=== PATIENT | female | born 1990 | race Caucasian/White ===

== ENCOUNTER 2018-09-06 13:30 | Emergency (ER) | payer OTHER, SELFPAY ==
--- NOTE | 2018-09-06 14:03 | RAD ---
RIGHT FOOT THREE VIEWS: History: Injury. Right foot pain. FINDINGS/IMPRESSION: No fracture or dislocation is identified. POS: [facility]ILIP[facility]
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
[2018-09-06] MEDS ORDERED: Ketorolac Tromethamine 30 MG/ML VIAL ONE (14:23)
== END 2018-09-06 15:15 | disposition home or self-care (01) ==
LOC: ERS 13:30
DX: T14.8XXA Other injury of unspecified body region, initial encounter (principal); F41.9 Anxiety disorder, unspecified; F32.9 Major depressive disorder, single episode, unspecified; V89.2XXA Person injured in unspecified motor-vehicle accident, traffic, initial encounter
CPT/HCPCS: 96374; J1885

== ENCOUNTER 2018-10-26 13:13 | Emergency (ER) | payer SELFPAY ==
[2018-10-26 13:45] LABS: #Basophils 0.1 thou/uL (0.0-0.2); #Lymphocytes 2.8 thou/uL (1.20-3.40); #Monocytes 0.5 thou/uL (0.11-0.59); #Neutrophils 6.6 thou/uL (1.40-6.50); %Eosinophils 0.3 % (0.0-10.0); %Lymphocytes 27.9 % (21.0-51.0); %Monocytes 5.4 % (0.0-10.0); %Neutrophils 65.4 % (42.0-75.0); Hemoglobin 13.5 g/dL (12.0-16.0); Mean Corpuscular Hemoglobin 31.4 pg (27.0-31.0); Mean Corpuscular Volume 92.5 fL (78.0-98.0); Mean Platelet Volume 6.9 fL (7.4-10.4); Platelet Count 321 thou/uL (130-400); RBC Distribution Width 10.8 % (11.5-14.5); Red Blood Cell (RBC) Count 4.29 mill/uL (4.20-5.40)
[2018-10-26 13:52] LABS: Bilirubin Negative (Negative); Blood, Urine Negative (Negative); Clarity CLEAR (Clear); Glucose, Urine (Dipstick) Negative (Negative); Leukocyte Small (Negative); Nitrite Negative (Negative); Protein, Urine (Dipstick) Negative (Neg-Trace); Specific Gravity, Urine 1.016 (1.002-1.036); Urobilinogen 0.2 mg/dL (0.2-1.0); pH, Urine 7.5 (5.0-9.0)
[2018-10-26 13:54] LABS: Bacteria/HPF None Seen HPF (None Seen); Hyaline Casts/LPF 4-6 HYALINE CAST LPF (0-3 Hyaline); Pathc Cast-AUWi Flag 1.16 (0-2.49)
[2018-10-26 14:09] LABS: ALT (SGPT) Less than 7 U/L (8-55); AST (SGOT) 18 U/L (5-34); Albumin 4.4 g/dL (3.5-5.0); Alkaline Phosphatase 82 U/L (40-150); Anion Gap 13 mmol/L (10-20); BUN (Urea Nitrogen) 11 mg/dL (7.0-18.7); Bilirubin, Total 0.5 mg/dL (0.2-1.2); Calc. Creatinine Clearance 0 mL/min (70-130); Calcium 9.4 mg/dL (7.8-10.44); Carbon Dioxide 22 mmol/L (22-29); Chloride 103 mmol/L (98-107); Estimated GFR-MDRD Greater than 90; Globulin 3.1 g/dL (2.4-3.5); Glucose 82 mg/dL (70-105); Lipase 65 U/L (8-78); Potassium 3.6 mmol/L (3.5-5.1); Protein, Total 7.5 g/dL (6.0-8.3); Sodium 134 mmol/L (136-145)
[2018-10-26] MEDS ORDERED: Acetaminophen 325 MG TAB ONE (14:17)
[2018-10-26] MEDS ORDERED: Ondansetron ODT 4 MG TAB ONE (14:17)
--- NOTE | 2018-10-26 15:22 | ULT ---
ULTRASOUND PELVIS TRANSVAGINAL: Date: !8 HISTORY: Pain. Abdominal pain. Elevated HCG. COMPARISON: None. FINDINGS: The uterus measures 8.1 cm in length. Right ovary measures 2.5 x 3.9 x 2.4 cm with a corpus luteum. L eft ovary measures 2.3 x 3.9 x 1.0 cm. A gestational sac and yolk sac are present, as well as a pole. heart tones are not visual ized. No subchorionic hemorrhage. The mean sac diameter is 0.94 cm. IMPRESSION: Visualized intrauterine without heart tones. The gestational sac diameter is less than 1.0 cm. This may reflect an early . A follow-up ultrasound with HCG trend is recommended in 1-2 weeks. POS: PETER
[2018-10-26 16:13] LABS: Bilirubin Negative (Negative); Blood, Urine Trace (Negative); Clarity CLEAR (Clear); Glucose, Urine (Dipstick) Negative (Negative); Leukocyte Trace (Negative); Nitrite Negative (Negative); Protein, Urine (Dipstick) Negative (Neg-Trace); Specific Gravity, Urine 1.011 (1.002-1.036); Urobilinogen 0.2 mg/dL (0.2-1.0)
[2018-10-26 16:15] LABS: Bacteria/HPF None Seen HPF (None Seen); Hyaline Casts/LPF 0-3 HYALINE CAST LPF (0-3 Hyaline); Pathc Cast-AUWi Flag 0.43 (0-2.49); WBC/HPF 0-3 HPF (0-3)
== END 2018-10-26 17:12 | disposition home or self-care (01) ==
LOC: ERS 13:13
DX: O21.9 Vomiting of pregnancy, unspecified (principal); O99.89 Other specified diseases and conditions complicating pregnancy, childbirth and the puerperium; R10.32 Left lower quadrant pain; O99.341 Other mental disorders complicating pregnancy, first trimester; F32.9 Major depressive disorder, single episode, unspecified; F41.9 Anxiety disorder, unspecified; Z79.899 Other long term (current) drug therapy; Z3A.01 Less than 8 weeks gestation of pregnancy
CPT/HCPCS: 36415; 76856; 80053; 81003; 81015; 83690; 84702; 85025; Q0162

== ENCOUNTER 2018-11-12 02:05 | Emergency (ER) | payer OTHER, SELFPAY ==
[2018-11-12 03:00] LABS: #Monocytes 0.7 thou/uL (0.11-0.59); #Neutrophils 8.2 thou/uL (1.40-6.50); %Basophils 0.2 % (0.0-1.0); %Eosinophils 0.3 % (0.0-10.0); %Lymphocytes 9.9 % (21.0-51.0); %Monocytes 6.9 % (0.0-10.0); %Neutrophils 82.7 % (42.0-75.0); Hemoglobin 11.7 g/dL (12.0-16.0); Mean Corpuscular HGB CONC 35.3 g/dL (32.0-36.0); Mean Corpuscular Hemoglobin 32.3 pg (27.0-31.0); Mean Corpuscular Volume 91.5 fL (78.0-98.0); Platelet Count 290 thou/uL (130-400); RBC Distribution Width 11.2 % (11.5-14.5); Red Blood Cell (RBC) Count 3.62 mill/uL (4.20-5.40); White Blood Cell (WBC) Count 9.9 thou/uL (4.8-10.8)
[2018-11-12] MEDS ORDERED: Ondansetron ODT 4 MG TAB ONE (03:01)
[2018-11-12] MEDS ORDERED: Acetaminophen 500 MG TAB ONE (03:01)
[2018-11-12 03:20] LABS: ALT (SGPT) 7 U/L (8-55); AST (SGOT) 17 U/L (5-34); Albumin 4.2 g/dL (3.5-5.0); Alkaline Phosphatase 69 U/L (40-150); Anion Gap 11 mmol/L (10-20); BUN (Urea Nitrogen) 13 mg/dL (7.0-18.7); Bilirubin, Total 0.2 mg/dL (0.2-1.2); Calc. Creatinine Clearance 0 mL/min (70-130); Calcium 9.5 mg/dL (7.8-10.44); Carbon Dioxide 23 mmol/L (22-29); Chloride 106 mmol/L (98-107); Estimated GFR-MDRD Greater than 90; Globulin 2.8 g/dL (2.4-3.5); Glucose 102 mg/dL (70-105); Lipase 25 U/L (8-78); Sodium 136 mmol/L (136-145)
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
== END 2018-11-12 05:07 | disposition home or self-care (01) ==
LOC: ERS 02:05
DX: O9A.211 Injury, poisoning and certain other consequences of external causes complicating pregnancy, first trimester (principal); S00.81XA Abrasion of other part of head, initial encounter; O99.341 Other mental disorders complicating pregnancy, first trimester; F41.9 Anxiety disorder, unspecified; F32.9 Major depressive disorder, single episode, unspecified; Z3A.09 9 weeks gestation of pregnancy; Y04.8XXA Assault by other bodily force, initial encounter
CPT/HCPCS: 36415; 76856; 80053; 83690; 85025; 86900; 86901; Q0162

== ENCOUNTER 2019-01-06 23:10 | Emergency (ER) | payer MEDICAID ==
[2019-01-06 23:33] LABS: Bilirubin Negative (Negative); Blood, Urine Trace (Negative); Clarity CLEAR (Clear); Glucose, Urine (Dipstick) Negative (Negative); Leukocyte Moderate (Negative); Nitrite Negative (Negative); Protein, Urine (Dipstick) Negative (Neg-Trace); Specific Gravity, Urine 1.007 (1.002-1.036); Urobilinogen 0.2 mg/dL (0.2-1.0); pH, Urine 6.5 (5.0-9.0)
[2019-01-06 23:34] LABS: Bacteria/HPF Rare-Few HPF (None Seen); Hyaline Casts/LPF 0-3 HYALINE CAST LPF (0-3 Hyaline); Squamous Epithelial 0-3 HPF (0-3)
[2019-01-07 00:14] LABS: #Basophils 0.1 thou/uL (0.0-0.2); #Eosinphils 0.1 thou/uL (0.0-0.7); #Lymphocytes 2.8 thou/uL (1.20-3.40); #Monocytes 0.7 thou/uL (0.11-0.59); #Neutrophils 8.4 thou/uL (1.40-6.50); %Basophils 0.9 % (0.0-1.0); %Eosinophils 0.8 % (0.0-10.0); %Lymphocytes 22.9 % (21.0-51.0); %Monocytes 5.8 % (0.0-10.0); %Neutrophils 69.6 % (42.0-75.0); Hemoglobin 11.9 g/dL (12.0-16.0); Mean Corpuscular HGB CONC 33.3 g/dL (32.0-36.0); Mean Corpuscular Volume 96.1 fL (78.0-98.0); Mean Platelet Volume 7.1 fL (7.4-10.4); Platelet Count 277 thou/uL (130-400); RBC Distribution Width 11.7 % (11.5-14.5); Red Blood Cell (RBC) Count 3.71 mill/uL (4.20-5.40)
[2019-01-07 00:37] LABS: ALT (SGPT) Less than 7 U/L (8-55); AST (SGOT) 15 U/L (5-34); Albumin 3.8 g/dL (3.5-5.0); Alkaline Phosphatase 61 U/L (40-150); Anion Gap 13 mmol/L (10-20); BUN (Urea Nitrogen) 11 mg/dL (7.0-18.7); Bilirubin, Total 0.2 mg/dL (0.2-1.2); Calc. Creatinine Clearance 0 mL/min (70-130); Calcium 9.1 mg/dL (7.8-10.44); Carbon Dioxide 21 mmol/L (22-29); Chloride 106 mmol/L (98-107); Estimated GFR-MDRD Greater than 90; Globulin 2.8 g/dL (2.4-3.5); Glucose 82 mg/dL (70-105); Lipase 30 U/L (8-78); Potassium 3.8 mmol/L (3.5-5.1); Protein, Total 6.6 g/dL (6.0-8.3); Sodium 136 mmol/L (136-145)
[2019-01-07] MEDS ORDERED: Acetaminophen 325 MG TAB ONE (01:18)
[2019-01-07] MEDS ORDERED: Ondansetron PF 4 MG/2 ML Vial ONE (01:18)
== END 2019-01-07 01:52 | disposition left against medical advice (07) ==
LOC: ERS 23:10
DX: O99.89 Other specified diseases and conditions complicating pregnancy, childbirth and the puerperium (principal); R10.31 Right lower quadrant pain; O99.342 Other mental disorders complicating pregnancy, second trimester; F41.9 Anxiety disorder, unspecified; F32.9 Major depressive disorder, single episode, unspecified; Z3A.16 16 weeks gestation of pregnancy
CPT/HCPCS: 36415; 80053; 81003; 81015; 83690; 85025; 87077; 87086; 87186; J2405

== ENCOUNTER 2019-01-26 06:50 | Outpatient (CLI) | payer OTHER ==
--- NOTE | 2019-01-26 08:13 | ULT ---
FObstetrical ultrasound: 01/26/2019 COMPARISON: None HISTORY: 28-year-old female undergoing evaluation for size and dates TECHNIQUE: Multiplanar grayscale sonographic imaging of the gravid uterus obtained. FINDINGS: Single intrauterine gestation noted with heart rate of 138 bpm and cephalic presentat ion. Cervical length approximately 3.1 cm. Placenta located anteriorly with no evidence for previa or abru ption. Intracranial contents, four-chamber heart view, umbilical cord insertion, stomach, regio n of kidneys, bladder, and three-vessel cord unremarkable. spine appears grossly un remarkable. Amniotic fluid index is 14.4 cm, within normal limits. nose and lips appear unremarkable. biometry: BPD 4.5 cm 19 weeks 4 days HC 16.6 cm 19 weeks 2 days AC 14.1 cm 19 weeks 4 days FL 2.7 cm 18 weeks 3 days Average age based on ultrasound is 19 weeks 2 days. Estimated weight is 270 g Estimated date of delivery is 06/20/2019. IMPRESSION: Single live intrauterine gestation as detailed above.
== END 2019-01-26 06:51 | disposition home or self-care (01) ==
LOC: BICULT 06:50
PROVIDERS: ATTEND Family Medicine
DX: Z34.92 Encounter for supervision of normal pregnancy, unspecified, second trimester (principal); Z3A.19 19 weeks gestation of pregnancy
CPT/HCPCS: 76805

== ENCOUNTER 2019-01-31 21:03 | Inpatient (IN) | payer OTHER ==
[2019-01-31 21:28] LABS: Bilirubin Negative (Negative); Blood, Urine Large (Negative); Clarity Cloudy (Clear); Glucose, Urine (Dipstick) Negative (Negative); Leukocyte Small (Negative); Nitrite Positive (Negative); Protein, Urine (Dipstick) 100 mg/dL (Neg-Trace); Specific Gravity, Urine 1.015 (1.005-1.030); Urobilinogen 0.2 mg/dL (0.2-1.0); pH, Urine 6.5 (5.0-9.0)
[2019-01-31 21:38] LABS: Bacteria/HPF 4+ HPF (None Seen); Hyaline Casts/LPF NONE SEEN LPF (0-3 Hyaline); WBC/HPF 21-50 HPF (0-3)
[2019-01-31 21:44] LABS: ALT (SGPT) Less than 6 U/L (8-55); AST (SGOT) 16 U/L (5-34); Albumin 3.4 g/dL (3.5-5.0); Alkaline Phosphatase 77 U/L (40-150); Anion Gap 13 mmol/L (10-20); BUN (Urea Nitrogen) 6 mg/dL (7.0-18.7); Bilirubin, Total 0.3 mg/dL (0.2-1.2); Calc. Creatinine Clearance 0 mL/min (70-130); Calcium 8.9 mg/dL (7.8-10.44); Carbon Dioxide 21 mmol/L (22-29); Chloride 103 mmol/L (98-107); Estimated GFR-MDRD Greater than 90; Globulin 3.1 g/dL (2.4-3.5); Glucose 90 mg/dL (70-105); Lipase 9 U/L (8-78); Potassium 3.7 mmol/L (3.5-5.1); Protein, Total 6.5 g/dL (6.0-8.3); Sodium 133 mmol/L (136-145)
[2019-01-31 21:45] LABS: Band 7 % (5-11); Eosinophils 1 % (0-10); Lymphocytes 8 % (21-51); MDiff Complete? YES; Mean Corpuscular Hemoglobin 32.3 pg (27.0-31.0); Mean Corpuscular Volume 92.1 fL (78.0-98.0); Mean Platelet Volume 6.6 fL (7.4-10.4); Monocytes 4 % (0-10); Neutrophil 80 % (42-75); Platelet Count 179 thou/uL (130-400); RBC Distribution Width 11.4 % (11.5-14.5); Red Blood Cell (RBC) Count 3.41 mill/uL (4.20-5.40); White Blood Cell (WBC) Count 15.6 thou/uL (4.8-10.8)
[2019-01-31] MEDS ORDERED: cefTRIAXone\\ROCEPHIN 2 GM VIAL ONE (21:59)
[2019-02-01] MEDS ORDERED: Sodium Chloride 0.9% 1,000 ML IV SCH ×2 (00:55→01:00)
[2019-02-01] MEDS ORDERED: Ondansetron ODT 4 MG TAB SL PRN (00:55)
[2019-02-01] MEDS ORDERED: Ondansetron PF 4 MG/2 ML Vial IVP PRN ×2 (00:55→08:08)
[2019-02-01] MEDS ORDERED: HYDROcodone/Acetaminophen 5/325 mg Tablet PO PRN (01:00)
[2019-02-01] MEDS: HYDROcodone/Acetaminophen 5/325 mg Tablet PO PRN ×4 (01:14→20:47)
[2019-02-01 01:48] VITALS: BMI 24.4
[2019-02-01] MEDS ORDERED: Acetaminophen 325 MG TAB PO PRN (08:08)
[2019-02-01] MEDS ORDERED: Zolpidem Tartrate 5 MG TAB PO PRN (08:08)
[2019-02-01] MEDS ORDERED: cefTRIAXone Sodium 1,000 MG in Syringe 0 ML IVPB SCH (08:15)
[2019-02-01] MEDS ORDERED: cefTRIAXone\\ROCEPHIN 1 GM in Sodium Chloride 0.9% 100 ML IVPB SCH ×2 (08:30→21:00)
[2019-02-01 09:00] LABS: Anion Gap 12 mmol/L (10-20); BUN (Urea Nitrogen) 5 mg/dL (7.0-18.7); Calc. Creatinine Clearance 146 mL/min (70-130); Calcium 7.9 mg/dL (7.8-10.44); Carbon Dioxide 20 mmol/L (22-29); Chloride 105 mmol/L (98-107); Estimated GFR-MDRD Greater than 90; Glucose 78 mg/dL (70-105); Potassium 3.5 mmol/L (3.5-5.1); Sodium 133 mmol/L (136-145)
[2019-02-01] MEDS: Sodium Chloride 0.9% 1,000 ML IV SCH ×2 (09:01→16:59)
[2019-02-01] MEDS: cefTRIAXone\\ROCEPHIN 1 GM in Sodium Chloride 0.9% 100 ML IVPB SCH (09:40)
--- NOTE | 2019-02-01 10:48 | ULT ---
FComplete Obstetrical Ultrasound Indication: History of pyelonephritis in . FINDINGS: There is a single live intrauterine gestation in cephalic presentation. The placenta is anterior in l ocation without evidence of previa. The cardiac activity is noted at 139 bpm. The ESTRELLITA is qualitativel y normal. The biparietal diameter 4.87 cm. The head circumference measures 17.67 cm. The abdominal circumference measured 13.79 cm. The femoral length was 3.23 cm. The estimated weight is 308 g +/- 46 g (23rd percentile). Average gestational age by ultrasound based on biometrics is 19 weeks and 6 with estimated due date of June 22, 2019. The visualized bladder, left kidney, 3 vessel cord, four-chamber heart, stomach, right kidney a nd cord insertion appear within normal limits. Impression: 1. Single live intrauterine gestation with size and dates as above. Limited survey appeared wit hin normal limits. Transcribed Date/Time: 02/01/2019 11:13 AM
--- NOTE | 2019-02-01 12:00 | ULT ---
FRenal ultrasound INDICATION: History of pyelonephritis with FINDINGS: The right kidney measured 12.2 x 5.1 x 6 cm. There is mild right hydronephrosis. The left kidney measures 11.7 x 5 x 5.4 cm. There are bilateral ureteral jets seen at the level of the bladder. Incidental note is made of the intrauterine where the heart rate is measured at 139 b pm. The prevoid bladder volume was 38.9 cc. IMPRESSION: Mild right hydronephrosis may be physiologic in nature. There are bilateral ureteral jets seen at the level of the bladder. Left kidney sonographically appears within normal limits.
--- NOTE | 2019-02-01 14:50 | HP ---
HISTORY OF PRESENT ILLNESS: This is a 28-year-old white female, G1, P0, at 20 weeks' gestation, who presents with fever and back pain. The patient has been doing well thus far. Three days prior, on Tuesday, the patient developed low back pain. She was seen in the office and diagnosed with sacroiliac pain. However, her pain started to radiate up her back, and later that evening developed fever and nausea. She has had minimal intake. Her fever persisted and finally came to the ER last night and was found to have pyelo. The patient is feeling somewhat better today, but she still with some nausea. She has had no prior history of kidney infections. PAST MEDICAL HISTORY: Unremarkable. PAST SURGICAL HISTORY: None. MEDICATIONS: vitamins and iron. ALLERGIES: NONE. FAMILY HISTORY: Unremarkable for any diabetes, hypertension, heart disease, or cancer. SOCIAL HISTORY: She lives with her common-law . She does not smoke and does not drink. REVIEW OF SYSTEMS: As above. LABORATORY DATA: O positive blood type. Rubella immune. Hepatitis B negative. GC and chlamydia negative. RPR negative. HIV negative. Sodium 133, potassium 3.7, and creatinine 0.64. White count 15.6, hemoglobin and hematocrit 11 and 31. Urine with ketones, large blood, positive nitrites, 7-10 rbc's, 21-50 wbc's, 4+ bacteria. ASSESSMENT: 1. A 20-week intrauterine . 2. Pyelonephritis bilaterally. 3. Dehydration. PLAN: 1. Admit. 2. IV Rocephin daily. 3. Hydrate with normal saline. 4. Recheck CBC and electrolytes. 5. Zofran for nausea. 6. Renal and OB ultrasound. Job ID: [id number]
[2019-02-01] MEDS: Ondansetron ODT 4 MG TAB PO PRN (17:01)
[2019-02-02] MEDS: HYDROcodone/Acetaminophen 5/325 mg Tablet PO PRN ×2 (02:54→08:39)
[2019-02-02] MEDS: Ondansetron ODT 4 MG TAB PO PRN (02:55)
[2019-02-02 03:28] VITALS: TEMP 97.8
[2019-02-02 05:54] LABS: #Eosinphils 0.1 thou/uL (0.0-0.7); #Lymphocytes 1.9 thou/uL (1.20-3.40); #Monocytes 1.3 thou/uL (0.11-0.59); #Neutrophils 7.5 thou/uL (1.40-6.50); %Basophils 0.4 % (0.0-1.0); %Eosinophils 0.9 % (0.0-10.0); %Lymphocytes 17.7 % (21.0-51.0); %Monocytes 11.9 % (0.0-10.0); %Neutrophils 69.3 % (42.0-75.0); Hemoglobin 8.2 g/dL (12.0-16.0); Mean Corpuscular HGB CONC 34.8 g/dL (32.0-36.0); Mean Corpuscular Hemoglobin 33.8 pg (27.0-31.0); Mean Corpuscular Volume 97.3 fL (78.0-98.0); Mean Platelet Volume 7.2 fL (7.4-10.4); Platelet Count 169 thou/uL (130-400); RBC Distribution Width 11.4 % (11.5-14.5); Red Blood Cell (RBC) Count 2.44 mill/uL (4.20-5.40); White Blood Cell (WBC) Count 10.8 thou/uL (4.8-10.8)
[2019-02-02 06:10] LABS: Anion Gap 8 mmol/L (10-20); BUN (Urea Nitrogen) Less than 4 mg/dL (7.0-18.7); Calc. Creatinine Clearance 174 mL/min (70-130); Calcium 7.7 mg/dL (7.8-10.44); Carbon Dioxide 22 mmol/L (22-29); Chloride 109 mmol/L (98-107); Estimated GFR-MDRD Greater than 90; Glucose 74 mg/dL (70-105); Potassium 3.7 mmol/L (3.5-5.1); Sodium 135 mmol/L (136-145)
[2019-02-02] MEDS: Sodium Chloride 0.9% 1,000 ML IV SCH ×2 (07:00)
[2019-02-02 08:13] VITALS: BP 120/60
[2019-02-02] MEDS: cefTRIAXone\\ROCEPHIN 1 GM in Sodium Chloride 0.9% 100 ML IVPB SCH (08:39)
--- NOTE | 2019-02-02 12:30 | DIS ---
DATE OF ADMISSION: 01/31/2019 DATE OF DISCHARGE: 02/02/2019 DISCHARGE DIAGNOSES: 1. Pyelonephritis. 2. Dehydration. 3. A 20-week . DISCHARGE MEDICATIONS: 1. vitamins daily. 2. Iron daily. 3. Macrobid one p.o. b.i.d., #20. 4. Tylenol No. 3 one to two p.o. q.4 hours p.r.n. pain, #30. BRIEF HISTORY: This is a 28-year-old white female, G1, P0, at 20 weeks' gestation, admitted with a 2-to 3-day history of back pain, fever, and nausea, had become progressively worse over the past several days. Seen in the ER and was diagnosed with acute pyelonephritis. She also has had a right sacroiliac discomfort. PAST MEDICAL HISTORY: Unremarkable. HOSPITAL COURSE: The patient was placed on IV Rocephin daily. Her fever resolved. Urine culture came back positive for E coli. ultrasound and renal ultrasound were negative, except for some mild hydronephrosis. The patient is doing well. Her blood count did drop from 11 to 8. She will be discharged on the above medications. She will follow up in 1 week. She will be placed on antibiotics for the duration of her also. Job ID: [id number]
== END 2019-02-02 10:13 | disposition home health service (06) | DRG 833 ==
LOC: SCSER 21:03 → 3SW 23:09
PROVIDERS: ADMIT Family Medicine; ATTEND Family Medicine
DX: O23.02 Infections of kidney in pregnancy, second trimester (principal); B96.20 Unspecified Escherichia coli [E. coli] as the cause of diseases classified elsewhere; E86.0 Dehydration; O99.282 Endocrine, nutritional and metabolic diseases complicating pregnancy, second trimester; Z3A.20 20 weeks gestation of pregnancy
CPT/HCPCS: 36415; 76770; 76805; 80048; 80053; 81003; 81015; 83690; 85025; 87040; 87077; 87086; 87186; 87804; 96361; 96365; J0696; J7050; Q0162

== ENCOUNTER 2019-02-03 00:12 | Observation (INO) | payer OTHER ==
[2019-02-03 01:31] LABS: ALT (SGPT) 11 U/L (8-55); AST (SGOT) 23 U/L (5-34); Albumin 3.5 g/dL (3.5-5.0); Alkaline Phosphatase 106 U/L (40-150); Anion Gap 15 mmol/L (10-20); BUN (Urea Nitrogen) 7 mg/dL (7.0-18.7); Bilirubin, Total 0.2 mg/dL (0.2-1.2); Calc. Creatinine Clearance 0 mL/min (70-130); Calcium 9.1 mg/dL (7.8-10.44); Carbon Dioxide 20 mmol/L (22-29); Chloride 105 mmol/L (98-107); Estimated GFR-MDRD Greater than 90; Globulin 3.3 g/dL (2.4-3.5); Glucose 83 mg/dL (70-105); Potassium 3.2 mmol/L (3.5-5.1); Protein, Total 6.8 g/dL (6.0-8.3); Sodium 137 mmol/L (136-145)
[2019-02-03 01:32] LABS: #Basophils 0.1 thou/uL (0.0-0.2); #Lymphocytes 1.6 thou/uL (1.20-3.40); #Monocytes 0.7 thou/uL (0.11-0.59); #Neutrophils 7.4 thou/uL (1.40-6.50); %Basophils 0.8 % (0.0-1.0); %Eosinophils 0.5 % (0.0-10.0); %Lymphocytes 16.6 % (21.0-51.0); %Neutrophils 75.2 % (42.0-75.0); Hemoglobin 10.7 g/dL (12.0-16.0); Mean Corpuscular HGB CONC 33.7 g/dL (32.0-36.0); Mean Corpuscular Volume 94.8 fL (78.0-98.0); Mean Platelet Volume 7.5 fL (7.4-10.4); Platelet Count 257 thou/uL (130-400); RBC Distribution Width 11.4 % (11.5-14.5); Red Blood Cell (RBC) Count 3.34 mill/uL (4.20-5.40); White Blood Cell (WBC) Count 9.8 thou/uL (4.8-10.8)
[2019-02-03 01:39] LABS: Bilirubin Negative (Negative); Blood, Urine Small (Negative); Clarity CLEAR (Clear); Glucose, Urine (Dipstick) Negative (Negative); Leukocyte Negative (Negative); Nitrite Negative (Negative); Protein, Urine (Dipstick) Negative (Neg-Trace); Specific Gravity, Urine 1.008 (1.002-1.036); Urobilinogen 0.2 mg/dL (0.2-1.0); pH, Urine 7.5 (5.0-9.0)
[2019-02-03 01:43] LABS: Bacteria/HPF None Seen HPF (None Seen); Hyaline Casts/LPF 0-3 HYALINE CAST LPF (0-3 Hyaline); Pathc Cast-AUWi Flag 0.81 (0-2.49); Squamous Epithelial 0-3 HPF (0-3); WBC/HPF 0-3 HPF (0-3)
[2019-02-03] MEDS ORDERED: cefTRIAXone\\ROCEPHIN 1 GM VIAL ONE (01:48)
[2019-02-03] MEDS ORDERED: Ondansetron PF 4 MG/2 ML Vial ONE (01:48)
[2019-02-03] MEDS ORDERED: Acetaminophen 500 MG TAB ONE (01:48)
[2019-02-03] MEDS ORDERED: Acetaminophen 325 MG TAB PO PRN ×2 (04:52→10:31)
[2019-02-03] MEDS ORDERED: Ondansetron ODT 4 MG TAB SL PRN (04:52)
[2019-02-03] MEDS ORDERED: Sodium Chloride 0.9% 1,000 ML IV SCH (04:52)
[2019-02-03] MEDS ORDERED: Ondansetron PF 4 MG/2 ML Vial IVP PRN ×2 (04:52→10:31)
[2019-02-03 04:54] VITALS: BMI 26.4
[2019-02-03] MEDS ORDERED: HYDROcodone/Acetaminophen 5/325 mg Tablet PO PRN (10:31)
[2019-02-03] MEDS ORDERED: cefTRIAXone\\ROCEPHIN 1 GM in Sodium Chloride 0.9% 100 ML IVPB SCH (11:00)
[2019-02-03 16:07] VITALS: BP 117/67; TEMP 98.4
[2019-02-03] MEDS ORDERED: Potassium Chloride 20 MEQ TAB PO SCH (16:30)
[2019-02-04] MEDS ORDERED: cefTRIAXone\\ROCEPHIN 1 GM in Sodium Chloride 0.9% 100 ML IVPB SCH (02:00)
[2019-02-04] MEDS ORDERED: Ferrous Sulfate 325 MG TAB PO SCH (08:00)
--- NOTE | 2019-02-05 08:04 | SS ---
DATE OF ADMISSION: 02/03/2019 DATE OF DISCHARGE: 02/03/2019 HISTORY OF PRESENT ILLNESS: This is a 28-year-old white female, G1, P0, at 20 weeks' gestation, who was discharged yesterday from the hospital with acute pyelonephritis and dehydration. The patient was doing very well. She was sent on Macrobid b.i.d. She had a good day. However, that evening at approximately 10:00 p.m., she was getting out of bed and she became lightheaded and fainted and fell to the floor and hit her head. Her family brought her to the ER, where she was admitted for further observation. This morning, the patient feels fine. She is wanting to go home at this time. She has had a good appetite. She felt that she just may have gotten up too quickly and passed out. PAST MEDICAL HISTORY: Unremarkable. PAST SURGERIES: None. MEDICATIONS: vitamins. ALLERGIES: NONE. FAMILY HISTORY: Unremarkable. SOCIAL HISTORY: She lives with a common-law . She does not smoke and does not drink. REVIEW OF SYSTEMS: As above. LABORATORY DATA: O-positive blood type. Rubella immune. Hepatitis B negative. GC and chlamydia negative. RPR negative. HIV negative. UA shows specific gravity of 1.008 with 80 ketones, 7-10 rbc's. White count 9.8 and hemoglobin and hematocrit 10 and 31. Electrolytes; potassium 3.2, creatinine 0.63, BUN 7. ASSESSMENT: 1. 20-week intrauterine . 2. Syncope, probable vasovagal reaction. 3. Acute pyelonephritis. 4. Dehydration, improving. BUN and creatinine ratio much improved. PLAN: 1. The patient may have had a vasovagal reaction yesterday. She is doing well this morning. She wants to go home. We will monitor her throughout the day and maybe send her home this evening or tomorrow. 2. Encourage hydration and encourage her to increase her diet. 3. Ferrous sulfate daily. 4. Ambulate in the halls today. 5. Possible discharge today or tomorrow. 6. Will require a Macrobid through the duration of her . Job ID: [id number]
== END 2019-02-03 17:26 | disposition home or self-care (01) ==
LOC: ERS 00:12 → 2SW 04:39
PROVIDERS: ADMIT Family Medicine; ATTEND Family Medicine
DX: O99.89 Other specified diseases and conditions complicating pregnancy, childbirth and the puerperium (principal); R55 Syncope and collapse; O23.02 Infections of kidney in pregnancy, second trimester; O99.282 Endocrine, nutritional and metabolic diseases complicating pregnancy, second trimester; E86.0 Dehydration; Z3A.20 20 weeks gestation of pregnancy; Z79.2 Long term (current) use of antibiotics; Z79.899 Other long term (current) drug therapy; Z88.8 Allergy status to other drugs, medicaments and biological substances; W19.XXXA Unspecified fall, initial encounter
CPT/HCPCS: 80053; 81003; 81015; 85025; 93005; 94760; 96361; 96365; 96375; G0378; J0696; J2405

== ENCOUNTER 2019-04-10 16:03 | Day surgery (SDC) | payer OTHER ==
[2019-04-10 16:35] VITALS: BP 112/67; TEMP 98.2; BMI 26.3
[2019-04-10 17:24] LABS: Bilirubin Negative (Negative); Blood, Urine Negative (Negative); Clarity CLEAR (Clear); Glucose, Urine (Dipstick) Negative (Negative); Leukocyte Negative (Negative); Nitrite Negative (Negative); Protein, Urine (Dipstick) Negative (Neg-Trace); Specific Gravity, Urine 1.006 (1.002-1.036); Urobilinogen 0.2 mg/dL (0.2-1.0); pH, Urine 7.5 (5.0-9.0)
[2019-04-10 17:38] LABS: FFN Internal QC Analyzer PASS (PASS); FFN Internal QC Cassette PASS (PASS); Fetal Fibronectin Negative (Negative)
--- NOTE | 2019-04-11 06:30 | SS ---
DATE OF ADMISSION: 04/10/2019 DATE OF DISCHARGE: 04/10/2019 REGULAR PHYSICIAN: David Shirley MD EVALUATING PHYSICIAN: Travis Diaz MD CHIEF COMPLAINT: Cramping. HISTORY OF PRESENT ILLNESS: Ms. Wilburn is a 28-year-old G1, P0 with an estimated date of confinement of 06/17/2019, who presents complaining of cramping throughout the day. She denies associated bleeding or loss of fluid. Her care has been with Dr. Shirley and was complicated by a kidney infection early in her . PAST MEDICAL HISTORY: None. PAST SURGICAL HISTORY: None. CURRENT MEDICATIONS: 1. vitamins. 2. Iron. 3. Keflex 1 tablet daily. ALLERGIES: NO KNOWN ALLERGIES. SOCIAL HISTORY: Denies tobacco, alcohol, or drug use. FAMILY HISTORY: Unremarkable. REVIEW OF SYSTEMS: Denies nausea, vomiting, fever, chills, ruptured membranes, or vaginal bleeding. PHYSICAL EXAMINATION: VITAL SIGNS: In triage, her vital signs were stable and she is afebrile. GENERAL: She is in no acute distress. ABDOMEN: Soft and nontender. PELVIC: Shows the cervix to be closed and uneffaced, mid-position. Prior to this, a fibronectin was obtained. heart rate tracing is stable with no significant regular contractions seen. LABORATORY: Urinalysis shows a specific gravity of 1.006 with negative protein, negative glucose, negative ketones, negative blood, negative nitrites, and negative leukocyte esterase. Her fibronectin returns negative. ASSESSMENT: 1. Thirty-week intrauterine . 2. No evidence of labor at this time. PLAN: The patient will be dismissed to home. labor precautions were discussed with her in detail. Dr. David Shirley was notified. Job ID: [id number]
== END 2019-04-10 18:16 | disposition home or self-care (01) ==
LOC: L&D/OP 16:03
PROVIDERS: ATTEND Family Medicine
DX: O99.89 Other specified diseases and conditions complicating pregnancy, childbirth and the puerperium (principal); R10.9 Unspecified abdominal pain; Z3A.30 30 weeks gestation of pregnancy; Z79.899 Other long term (current) drug therapy
CPT/HCPCS: 81003; 82731; 99284

== ENCOUNTER 2019-05-29 08:33 | Day surgery (SDC) | payer OTHER ==
[2019-05-29 09:08] VITALS: BP 108/68; TEMP 98.1; BMI 28.5
[2019-05-29] MEDS ORDERED: hydrALAZINE 20 MG/ML VIAL SLOW IVP PRN (09:14)
--- NOTE | 2019-05-29 09:18 | PDOC.LDHP ---
Labor and Delivery H&P Chief complaint: other (Vag Bleed at 37 weeks) HPI: Time: 914 Location: L&D Patient of Dr Subhash Mcgee 28 yo 2 prior SABs at first trimester, now at 37 weeks and 2 weeks, with episode of VB this AM enough to soak underwear. No Clots, no trauma, no HX issues. She was checked last Tuesday by Dr Subhash Mcgee and was "closed". here for eval for this episode of VB...no HX of previa. Review of Systems: As per HPI Current gestational age (weeks): 37 (2) Dating criteria: last menstrual period Grav: 3 Para: 0 OB History Details: 2 first trimester losses. This she was admitted for pyelo and is on ABX suppression Current complications: none Abnormal US findings: No Current medications: pre- vitamins Previous surgical history: none Allergies/Adverse Reactions: Allergies Allergy/AdvReac Type Severity Reaction Status Date / Time bupropion [From Wellbutrin] Allergy Verified 04/10/19 16:27 Social history: none - Physical Exam Vital signs reviewed and normal: yes (98.1 94 108/68 18) General: NAD Heart: RRR Lungs: CTAB Abdomen: gravid Extremeties: no edema FHT: category 1 [place] contractions every: irregular CTX about every 8 minutues with some irritability - Assessment Early term, with episode of VB this AM...no clinical evidence of compromise at this time. Exam pending by me. - Plan Plan: observation in L&D (Need to check RH type and give rhogam if RH negative in case this is a marginal separation of placenta. Baby looks reactive on NST. CX exam pending.)
--- NOTE | 2019-05-29 11:03 | PDOC.EVN ---
Event Note - Event Note Event Note: Lab: pos No further VB noted so she requested to go home
== END 2019-05-29 10:27 | disposition home health service (06) ==
LOC: L&D/OP 08:33
PROVIDERS: ATTEND Family Medicine
DX: O99.89 Other specified diseases and conditions complicating pregnancy, childbirth and the puerperium (principal); N89.8 Other specified noninflammatory disorders of vagina; Z3A.37 37 weeks gestation of pregnancy; Z88.8 Allergy status to other drugs, medicaments and biological substances
CPT/HCPCS: 36415; 59025; 86900; 86901; 99283

== ENCOUNTER 2019-06-03 06:43 | Day surgery (SDC) | payer OTHER ==
[2019-06-03 07:39] VITALS: BMI 28.3
[2019-06-03 07:44] LABS: Amnisure Test No Membranes Rupture (No Rupture)
[2019-06-03 07:45] LABS: Amnisure Internal Control QC ACCEPTABLE (ACCEPTABLE)
[2019-06-03] MEDS ORDERED: hydrALAZINE 20 MG/ML VIAL SLOW IVP PRN (08:36)
[2019-06-03] MEDS ORDERED: Promethazine HCl 25 MG/ML VIAL IM/IV PRN (08:37)
[2019-06-03] MEDS ORDERED: Lactated Ringer's 1,000 ML IV SCH (08:45)
--- NOTE | 2019-06-03 10:25 | PRG ---
DATE OF SERVICE: 06/03/2019 TIME OF SERVICE: 0950 hours. PRESENTING COMPLAINT: Contractions at 38 weeks. HISTORY OF PRESENT ILLNESS: Ms. Wilburn is a 28-year-old G3, P0 early loss x2 with GODWIN of 06/17, placing her at 38 weeks gestation. She presents complaining of contractions, possible rupture of membranes. She reports active fetus. Denies vaginal bleeding. CARDIOVASCULAR SPECIALIST HISTORY: As noted. The patient has a history of antibiotic suppression during therapy. Group B strep result not seen on chart. PAST MEDICAL HISTORY: None. PAST SURGICAL HISTORY: None. ALLERGIES: WELLBUTRIN. MEDICATIONS: vitamins. SOCIAL HISTORY: Denies tobacco, alcohol, or drug use. FAMILY HISTORY: Noncontributory. REVIEW OF SYSTEMS: Noncontributory. PHYSICAL EXAMINATION: GENERAL: White female, in no acute distress. VITAL SIGNS: Temperature 98.5, respirations 18, blood pressure 118/72, and pulse 85. HEENT: Within normal limits. LUNGS: Clear to auscultation bilaterally. HEART: Regular rate and rhythm. ABDOMEN: Soft and nontender. The patient reports frequent contractions, however, most of them seemed to be her tightening her abdomen rather than actually palpable contraction. No CVA tenderness is noted. : Vulva without lesions. Vagina; discharge, cervix is fingertip, 50 and -3, cephalic, ballots. EXTREMITIES: Without clubbing, cyanosis, or edema. HOSPITAL COURSE: The patient received IV hydration. She had a prolonged monitoring with a category 1 heart rate tracing throughout. Again, true contractions were not noted significantly on her heart rate tracing and the patient is relatively thin and stay should be quite evident. After couple of hours, the patient felt like things were not changing and her cervical exam was unchanged. She was discharged home with ER precautions and to keep scheduled followup with Dr. Shirley. Job ID: [id number]
== END 2019-06-03 10:04 | disposition home health service (06) ==
LOC: L&D/OP 06:43
PROVIDERS: ATTEND Family Medicine
DX: O47.1 False labor at or after 37 completed weeks of gestation (principal); Z3A.38 38 weeks gestation of pregnancy
CPT/HCPCS: 84112; 96360; 99284; J2550

== ENCOUNTER 2019-06-13 19:30 | Inpatient (IN) | payer OTHER ==
[~2019-06-13 19:30] MED LIST: Lidocaine 2% MPF 10 ML AMP (For Epidural Use) ONE
[2019-06-13] MEDS ORDERED: Lidocaine 1% (PF) 30 ML VIAL SC PRN (20:36)
[2019-06-13] MEDS ORDERED: HYDROcodone/Acetaminophen 5/325 mg Tablet PO PRN (20:36)
[2019-06-13] MEDS ORDERED: Ondansetron PF 4 MG/2 ML Vial IVP PRN (20:36)
[2019-06-13] MEDS ORDERED: Misoprostol 200 MCG TAB PR PRN (20:36)
[2019-06-13] MEDS ORDERED: Promethazine HCl 25 MG/ML VIAL IM PRN (20:36)
[2019-06-13] MEDS ORDERED: Acetaminophen 500 MG TAB PO PRN (20:36)
[2019-06-13] MEDS ORDERED: hydrALAZINE 20 MG/ML VIAL SLOW IVP PRN (20:36)
[2019-06-13] MEDS ORDERED: Ibuprofen 800 MG TAB PO PRN (20:36)
[2019-06-13] MEDS ORDERED: NS / Oxytocin 40 units/1000ml 1,000 ML IV PRN (20:36)
[2019-06-13] MEDS ORDERED: Butorphanol Tartrate 1 MG/ML VIAL SLOW IVP PRN (20:36)
[2019-06-13] MEDS ORDERED: Zolpidem Tartrate 5 MG TAB PO PRN (20:36)
[2019-06-13 20:59] VITALS: BMI 29.8
[2019-06-13] MEDS: Lactated Ringer's 1,000 ML IV SCH (21:23)
[2019-06-13 21:36] LABS: Hemoglobin 11.7 g/dL (12.0-16.0); Mean Corpuscular HGB CONC 35.3 g/dL (32.0-36.0); Mean Corpuscular Hemoglobin 32.7 pg (27.0-31.0); Mean Corpuscular Volume 92.5 fL (78.0-98.0); Mean Platelet Volume 7.9 fL (7.4-10.4); Platelet Count 192 thou/uL (130-400); RBC Distribution Width 11.7 % (11.5-14.5); Red Blood Cell (RBC) Count 3.57 mill/uL (4.20-5.40); White Blood Cell (WBC) Count 8.9 thou/uL (4.8-10.8)
[2019-06-13] MEDS: Misoprostol 100 MCG TAB VAG SCH (21:37)
[2019-06-13 22:18] LABS: Syphilis Antibody Nonreactive (Nonreactive); Syphilis Antibody Index 0.03 S/CO (<1.00 Non-Reactive)
[2019-06-13 22:52] LABS: HBSAg Index 0.37 S/CO (0-0.99); Hep B Surf Ag Non-Reactive S/CO (NonReactive)
[2019-06-14] MEDS: Misoprostol 100 MCG TAB VAG SCH ×5 (00:46→19:27)
[2019-06-14] MEDS: Lactated Ringer's 1,000 ML IV SCH ×3 (04:30→13:04)
--- NOTE | 2019-06-14 08:26 | HP ---
HISTORY OF PRESENT ILLNESS: This is a 28-year-old white female, G1, P0, at 39 weeks gestation with the EDC of 06/17/2019, being admitted for an elective Cytotec/Pitocin induction. The patient has been having occasional contractions off and on for the past week. She has been to Labor and Delivery several times. Her course otherwise has been unremarkable. PAST MEDICAL HISTORY: Unremarkable. ALLERGIES: NONE. PAST SURGICAL HISTORY: None. FAMILY HISTORY: Unremarkable. SOCIAL HISTORY: She has a common law boyfriend. 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 She is a nonsmoker. She does not drink alcohol and has no children. REVIEW OF SYSTEMS: As above. PHYSICAL EXAMINATION: VITAL SIGNS: Stable. Afebrile. GENERAL: No acute distress. HEENT: . HEART: Regular rate and rhythm. LUNGS: Clear. ABDOMEN: Gravid. heart tones 150. EXTREMITIES: No edema. LABORATORY DATA: GBS negative. Hematocrit 35.2. Urine culture negative. 1-hour GGT 120. GC and chlamydia negative. negative. O positive blood type. Rubella immune. Hepatitis B negative. Pap normal. HIV negative. Urine drug screen negative. ASSESSMENT: Term . PLAN: 1. Routine anesthesia preop. 2. Routine L and D orders. 3. Cytotec/Pitocin induction. Job ID: [id number]
[2019-06-14] MEDS ORDERED: Fentanyl 4 mcg/Bup 0.1% Cadd 100 ML ONE ×2 (08:58→17:41)
[2019-06-14] MEDS ORDERED: Lidocaine 2% PF 5 ML VIAL ONE (09:56)
[2019-06-14] MEDS ORDERED: Fentanyl 100 MCG/2 ML VIAL ONE ×3 (10:02→23:36)
[2019-06-14] MEDS ORDERED: diphenhydrAMINE 50 MG/ML VIAL IVP PRN ×2 (10:49→23:58)
[2019-06-14] MEDS ORDERED: Lactated Ringer's 500 ML IV PRN (10:49)
[2019-06-14] MEDS ORDERED: Acetaminophen 325 MG TAB PO PRN (10:49)
[2019-06-14] MEDS ORDERED: Promethazine HCl 25 MG/ML VIAL IM PRN ×2 (10:49→23:58)
[2019-06-14] MEDS ORDERED: Naloxone HCl 0.4 mg/ml Vial IVP PRN ×4 (10:49→23:58)
[2019-06-14] MEDS ORDERED: ePHEDrine/0.9% NaCl/PF SYRINGE 50 mg/10 ml SLOW IVP PRN (10:49)
[2019-06-14] MEDS ORDERED: Ondansetron PF 4 MG/2 ML Vial IVP PRN ×2 (10:49→23:58)
[2019-06-14] MEDS ORDERED: Fentanyl 4 mcg/Bupivacaine 0.1% Cassette 100 ML EPIDURAL SCH (11:00)
[2019-06-14] MEDS ORDERED: Communication Order-Pharmacy FS SCH ×2 (11:00→23:45)
[2019-06-14] MEDS: NS w/ Oxytocin 10 units 500 ML IV SCH (16:30)
[2019-06-14] MEDS ORDERED: Lidocaine 2% 10 ML INJ ONE (22:55)
[2019-06-14] MEDS ORDERED: Bicitra 30 ML UDCUP ONE (22:55)
[2019-06-14] MEDS ORDERED: Oxytocin 10 UNITS/ML VIAL ONE (22:55)
[2019-06-14] MEDS ORDERED: Ondansetron PF 4 MG/2 ML Vial ONE (23:13)
[2019-06-14] MEDS ORDERED: Azithromycin 500 MG VIAL ONE (23:19)
[2019-06-14] MEDS ORDERED: MORPHINE 5 MG/10 ML PF VIAL ONE (23:36)
[2019-06-14] MEDS ORDERED: Ketorolac Tromethamine 30 MG/ML VIAL IVP SCH (23:45)
[2019-06-14] MEDS ORDERED: Meperidine HCl/PF 25 MG/ML VIAL SLOW IVP PRN (23:58)
[2019-06-14] MEDS ORDERED: Ketorolac Tromethamine 30 MG/ML VIAL IVP PRN (23:58)
[2019-06-14] MEDS ORDERED: HYDROmorphone 2 MG/ML VIAL SLOW IVP PRN (23:58)
[2019-06-14] MEDS ORDERED: Promethazine HCl 25 MG SUPP PR PRN (23:58)
[2019-06-14] MEDS ORDERED: Naloxone HCl 0.4 mg/ml Vial IV PRN (23:58)
[2019-06-14] MEDS ORDERED: L&D-Morphine 4 MG/ML VIAL SLOW IVP PRN (23:58)
[2019-06-14] MEDS ORDERED: Ondansetron HCl/PF 4 MG/2 ML Vial IVP PRN (23:58)
--- NOTE | 2019-06-15 00:31 | OP ---
DATE OF PROCEDURE: 06/14/2019 In brief, I was asked to assist with a primary low transverse section with Dr. David Shirley. I was scrubbed in and assisted with the primary low transverse via Pfannenstiel entry. The uterus was closed in 2-layer closure. I was present from start of the skin incision all the way until fascial closure and subcutaneous tissue reapproximation. The skin was closed by Dr. Shirley with the scrub community relations assistant. Again, please see the full dictation for full details. Surgeon: Subhash Mcgee Assist: Bo Procedure: Primary LT Cesrean Section Job ID: [id number] MTDD
[2019-06-15] MEDS: Misoprostol 100 MCG TAB VAG SCH (00:46)
[2019-06-15] MEDS: NS w/ Oxytocin 10 units 500 ML IV SCH (00:46)
[2019-06-15] MEDS ORDERED: diphenhydrAMINE 25 MG CAP PO PRN (01:42)
[2019-06-15] MEDS ORDERED: Ondansetron PF 4 MG/2 ML Vial IVP PRN (01:42)
[2019-06-15] MEDS ORDERED: Methylergonovine 0.2 MG/ML VIAL IM PRN (01:42)
[2019-06-15] MEDS ORDERED: hydrALAZINE 20 MG/ML VIAL SLOW IVP PRN (01:42)
[2019-06-15] MEDS ORDERED: Misoprostol 200 MCG TAB PR PRN (01:42)
[2019-06-15] MEDS ORDERED: Zolpidem Tartrate 5 MG TAB PO PRN (01:42)
[2019-06-15] MEDS ORDERED: Lanolin Ointment 7 GM TUBE TOP PRN (01:42)
[2019-06-15 05:28] LABS: Hemoglobin 9.4 g/dL (12.0-16.0)
[2019-06-15] MEDS: Ferrous Sulfate 325 MG TAB PO SCH ×2 (08:52→17:53)
[2019-06-15] MEDS: Prenatal Vitamin 1 TAB PO SCH (08:52)
[2019-06-15] MEDS: HYDROcodone/Acetaminophen 5/325 mg Tablet PO PRN ×3 (08:55→21:06)
[2019-06-15] MEDS ORDERED: Adacel (T-DAP) 0.5 ML SYRINGE IM ONE (09:00)
[2019-06-15] MEDS ORDERED: hydrALAZINE 20 MG/ML VIAL SLOW IVP SCH (11:15)
--- NOTE | 2019-06-15 11:46 | OP ---
DATE OF PROCEDURE: 06/14/2019 PREOPERATIVE DIAGNOSES: 1. Term . 2. Failure to progress. POSTOPERATIVE DIAGNOSES: 1. Term . 2. Failure to progress. 3. Occiput posterior. PROCEDURE: Primary low transverse section. FREE LANCE ARTIST: Dann Soriano. ANESTHESIA: Epidural. DESCRIPTION OF PROCEDURE: This 28-year-old white female, G1, P0, was taken to the operating room. Placed in supine position. Abdomen prepped and draped sterilely. Pfannenstiel incision was made. Subcu was dissected down to the fascia. Fascia was opened without incident. Peritoneum was opened by blunt dissection. Bladder flap was dissected inferiorly. Fluid was noted to be clear. A low-transverse uterine incision was made. Delivered the baby from OP position. Baby did breathe and cry vigorously upon delivery. Delivered the placenta manually intact. Closed the uterus in 2 layers of 1 Monocryl. Abdomen was evacuated of all clots. The Juan Jose O was removed. Peritoneum was closed with 2-0 chromic, the fascia with 0 Vicryl and the skin with hina. ESTIMATED BLOOD LOSS: 500 cc. Job ID: [id number]
[2019-06-15] MEDS: Ibuprofen 800 MG TAB PO SCH (21:06)
[2019-06-16] MEDS: HYDROcodone/Acetaminophen 5/325 mg Tablet PO PRN ×4 (06:13→22:27)
[2019-06-16] MEDS: Ibuprofen 800 MG TAB PO SCH ×3 (06:14→22:27)
[2019-06-16] MEDS: Ferrous Sulfate 325 MG TAB PO SCH ×2 (10:36→17:48)
[2019-06-16] MEDS: Prenatal Vitamin 1 TAB PO SCH (10:36)
[2019-06-16] MEDS ORDERED: Simethicone Chewable 80 MG TAB PO PRN (10:40)
--- NOTE | 2019-06-16 10:40 | PDOC.PP ---
Post Progress Note Post Day #: 2 Subjective: Doing well, working on , ambulating some but could do more, still with a little edema in the feet. PO intake tolerated: yes Flatus: yes Ambulation: yes Vital Signs (12 hours) Temp Pulse Resp BP Pulse Ox 06/16/19 09:36 98.7 F 80 13 120/71 97 06/16/19 00:00 98.3 F 78 18 106/63 Weight Weight 163 lb - Physical Examination General: NAD Cardiovascular: no m/r/g, RRR Respiratory: clear to auscultation bilaterally, non-labored breathing Abdominal: + bowel sounds, lochia, no distention, appropriately TTP Extremities: negative homans (B) Skin: CS incision dry & intact Neurological: no gross focal deficits Psychiatric: A&Ox3 Result Diagrams: 06/15/19 05:17 Additional Labs: Post Labs Blood Type O POSITIVE 06/13/19 21:05 Hep Bs Antigen Non-Reactive S/CO (NonReactive) 06/13/19 21:05 (1) delivery delivered Code(s): O82 - ENCOUNTER FOR DELIVERY WITHOUT INDICATION Status: Acute - Assessment/Plan POD #2 Routine care Ambulate today Probably home tomorrow.
[2019-06-17] MEDS: HYDROcodone/Acetaminophen 5/325 mg Tablet PO PRN ×4 (03:38→22:57)
[2019-06-17] MEDS: Ibuprofen 800 MG TAB PO SCH ×3 (06:23→21:23)
[2019-06-17] MEDS: Prenatal Vitamin 1 TAB PO SCH (08:39)
[2019-06-17] MEDS: Ferrous Sulfate 325 MG TAB PO SCH ×2 (08:40→16:55)
--- NOTE | 2019-06-17 10:40 | PDOC.PP ---
Post Progress Note Post Day #: 3 Subjective: Doing well. Continuing to work on BF. Pain controlled. PO intake tolerated: yes Flatus: yes Ambulation: yes Vital Signs (12 hours) Temp Pulse Resp BP Pulse Ox 06/17/19 08:45 100 06/17/19 04:30 98.2 F 84 16 111/60 06/17/19 01:05 97.8 F 98 16 125/57 L Weight Weight 163 lb - Physical Examination General: NAD Cardiovascular: no m/r/g, RRR Respiratory: clear to auscultation bilaterally, non-labored breathing Abdominal: + bowel sounds, lochia, no distention, appropriately TTP Skin: CS incision dry & intact Neurological: no gross focal deficits Psychiatric: A&Ox3 Result Diagrams: 06/15/19 05:17 Additional Labs: Post Labs Blood Type O POSITIVE 06/13/19 21:05 Hep Bs Antigen Non-Reactive S/CO (NonReactive) 06/13/19 21:05 (1) delivery delivered Code(s): O82 - ENCOUNTER FOR DELIVERY WITHOUT INDICATION Status: Acute - Assessment/Plan Routine post-op care D/C hina today D/C home F/U in 2 weeks with Nasra Shirley.
[2019-06-17] MEDS ORDERED: Bisacodyl 10 MG SUPP PR PRN (11:21)
[2019-06-17] MEDS ORDERED: Docusate Calcium (SURFAK) 240 MG CAP PO SCH (11:30)
[2019-06-17] MEDS: Docusate Calcium (SURFAK) 240 MG CAP PO SCH (21:22)
[2019-06-18] MEDS: Ibuprofen 800 MG TAB PO SCH ×2 (06:13→14:51)
[2019-06-18 07:53] VITALS: BP 117/74; TEMP 98.1
[2019-06-18] MEDS: Ferrous Sulfate 325 MG TAB PO SCH (09:34)
[2019-06-18] MEDS: Docusate Calcium (SURFAK) 240 MG CAP PO SCH (09:34)
[2019-06-18] MEDS: Prenatal Vitamin 1 TAB PO SCH (09:34)
[2019-06-18] MEDS: HYDROcodone/Acetaminophen 5/325 mg Tablet PO PRN (12:37)
--- NOTE | 2019-06-18 14:01 | PDOC.PP ---
Post Progress Note Post Day #: 4 Subjective: Doing well, baby still under phototx, have to D/C today but wants to B&B PO intake tolerated: yes Flatus: yes Ambulation: yes Vital Signs (12 hours) Temp Pulse Resp BP Pulse Ox 06/18/19 07:52 98.1 F 86 20 117/74 98 06/18/19 06:17 97.7 F 81 117/72 Weight Weight 163 lb - Physical Examination General: NAD Cardiovascular: no m/r/g, RRR Respiratory: clear to auscultation bilaterally, non-labored breathing Abdominal: + bowel sounds, lochia, no distention, appropriately TTP Skin: CS incision dry & intact Psychiatric: A&Ox3 Result Diagrams: 06/15/19 05:17 Additional Labs: Post Labs Blood Type O POSITIVE 06/13/19 21:05 Hep Bs Antigen Non-Reactive S/CO (NonReactive) 06/13/19 21:05 (1) delivery delivered Code(s): O82 - ENCOUNTER FOR DELIVERY WITHOUT INDICATION Status: Acute - Assessment/Plan Routine post-op care D/C hina D/C to B&B
== END 2019-06-18 14:50 | disposition home or self-care (01) | DRG 788 ==
LOC: L&D 19:44 → EEVIPCON 19:44 → L&D 06-14 23:24 → 3SW 06-15 01:56
PROVIDERS: ADMIT Family Medicine; ATTEND Family Medicine
PROC: 10D00Z1 Extraction of Products of Conception, Low, Open Approach (ICD-10-PCS; principal; 2019-06-14)
PROC: 10907ZC Drainage of Amniotic Fluid, Therapeutic from Products of Conception, Via Natural or Artificial Opening (ICD-10-PCS; 2019-06-14)
PROC: 3E0P7VZ Introduction of Hormone into Female Reproductive, Via Natural or Artificial Opening (ICD-10-PCS; 2019-06-14)
PROC: 3E033VJ Introduction of Other Hormone into Peripheral Vein, Percutaneous Approach (ICD-10-PCS; 2019-06-14)
DX: O64.0XX0 Obstructed labor due to incomplete rotation of fetal head, not applicable or unspecified (principal); O61.9 Failed induction of labor, unspecified; Z3A.39 39 weeks gestation of pregnancy; Z37.0 Single live birth
CPT/HCPCS: 36415; 51702; 85014; 85018; 85027; 86780; 86850; 86900; 86901; 87340; 90715; J0456; J0690; J1885; J2001; J2274; J2310; J2405; J2590; J3010

== ENCOUNTER 2020-03-30 13:26 | Emergency (ER) | payer OTHER ==
[2020-03-31 10:11] LABS: SARS-CoV-2 MS2 Positive; SARS-CoV-2 N Gene Negative; SARS-CoV-2 S Gene Negative; SARS-CoV-2 orf1ab Negative
== END 2020-03-30 14:19 | disposition home or self-care (01) ==
LOC: ERS 13:26
DX: Z20.828 Contact with and (suspected) exposure to other viral communicable diseases (principal); F41.9 Anxiety disorder, unspecified
CPT/HCPCS: 87635; 99283; U0003

== ENCOUNTER 2020-12-30 10:37 | Emergency (ER) | payer OTHER, SELFPAY ==
[2020-12-30 11:41] LABS: Pregnancy Test - Urine (BHCG) Negative (Negative); Pregu Control Background? CLEAR/WHITE (CLR/WHITE); Pregu Control Bar Appear? YES (CONTROL BAR); Specific Gravity 1.029 (1.002-1.036)
[2020-12-30 11:54] LABS: Bacteria/HPF None Seen HPF (None Seen); Bilirubin Negative (Negative); Blood, Urine 3+ (Negative); Clarity Clear (Clear); Glucose, Urine (Dipstick) Normal (Negative); Ketone, Urine Negative (Negative); Leukocyte Negative Leu/uL (Negative); Nitrite Negative (Negative); Protein, Urine (Dipstick) 20 mg/dL (Neg-Trace); Specific Gravity, Urine 1.029 (1.002-1.036); Urobilinogen Normal mg/dL (Less than 2); WBC/HPF 0-3 HPF (0-3)
[2020-12-30] MEDS ORDERED: Ketorolac Tromethamine 30 MG/ML VIAL ONE (13:00)
--- NOTE | 2020-12-30 13:10 | CT ---
Exam: Abdomen CT without contrast Pelvic CT without contrast HISTORY: Right flank pain COMPARISON: None FINDINGS: Abdomen CT: Lung bases:Clear Heart size: Normal heart Aorta: Caliber aorta Solid organs: Technique limits evaluation. Grossly no solid organ abnormality Lymph nodes: No gastrohepatic, retrocrural or periportal lymphadenopathy Gallbladder: Unremarkable Mesentery: No mass, lymphadenopathy, free air or free fluid Kidneys: Bilateral punctate nonobstructing intrarenal calculi. Largest calculus is in the lower pole the right kidney measuring 2 mm. Bilaterally no obstructive uropathy. Alimentary canal: Limited evaluation due to technique. Multiple normal caliber small bowel loops. Nor mal ileocecal junction. Scattered fecal material in a nondistended, nondilated colon. Minimal diverticulosis in the sigmoid colon. No evidence of diverticulitis. Normal caliber appendix CT PELVIS: No mass, adenopathy, free air. Trace free fluid in the pelvis is presumed to be physiologic fluid. Reproductive organs: Grossly unremarkable. Urinary bladder: Unremarkable. Osseous structures: No lytic or blastic lesions IMPRESSION: 1. No evidence of obstructive uropathy 2. Normal caliber appendix 3. Bilateral nonobstructing intrarenal calculi
[2020-12-30 13:31] LABS: #Basophils 0.1 thou/uL (0.0-0.2); #Lymphocytes 2.7 thou/uL (1.20-3.40); #Monocytes 0.3 thou/uL (0.11-0.59); #Neutrophils 4.8 thou/uL (1.40-6.50); %Basophils 1.3 % (0.0-1.0); %Eosinophils 0.5 % (0.0-10.0); %Lymphocytes 34.1 % (21.0-51.0); %Neutrophils 60.1 % (42.0-75.0); Hemoglobin 14.5 g/dL (12.0-16.0); Platelet Count 272 thou/uL (130-400); RBC Distribution Width 11.7 % (11.5-14.5); Red Blood Cell (RBC) Count 4.69 mill/uL (4.20-5.40); White Blood Cell (WBC) Count 7.9 thou/uL (4.8-10.8)
[2020-12-30 14:19] LABS: ALT (SGPT) Less than 7 U/L (8-55); AST (SGOT) 16 U/L (5-34); Albumin 4.3 g/dL (3.5-5.0); Alkaline Phosphatase 65 U/L (40-110); Anion Gap 15 mmol/L (10-20); BUN (Urea Nitrogen) 16 mg/dL (7.0-18.7); Bilirubin, Total 0.4 mg/dL (0.2-1.2); Calc. Creatinine Clearance 0 mL/min (70-130); Calcium 9.1 mg/dL (7.8-10.44); Carbon Dioxide 21 mmol/L (22-29); Chloride 106 mmol/L (98-107); Globulin 3.2 g/dL (2.4-3.5); Glucose 80 mg/dL (70-105); Potassium 3.9 mmol/L (3.5-5.1); Protein, Total 7.5 g/dL (6.0-8.3); Sodium 138 mmol/L (136-145)
== END 2020-12-30 14:45 | disposition home or self-care (01) ==
LOC: ERS 10:37
DX: S39.012A Strain of muscle, fascia and tendon of lower back, initial encounter (principal)
CPT/HCPCS: 74176; 80053; 81003; 81015; 81025; 85025; 87086; 94760; 96374; J1885

== ENCOUNTER 2021-04-17 09:42 | Emergency (ER) | payer SELFPAY ==
[2021-04-17] MEDS ORDERED: Boostrix 0.5 ML (Tdap) VIAL ONE (10:32)
[2021-04-17] MEDS ORDERED: Sulfameth/Trimethoprim DS 800-160mg TAB ONE (10:32)
[2021-04-17] MEDS ORDERED: Cephalexin 250 MG CAP ONE (10:32)
[2021-04-17] MEDS ORDERED: Ketorolac Tromethamine 30 MG/ML VIAL ONE (10:32)
== END 2021-04-17 11:16 | disposition home or self-care (01) ==
LOC: ERS 09:42
DX: L03.011 Cellulitis of right finger (principal); Z23 Encounter for immunization
CPT/HCPCS: 90471; 90715; 96372; 99283; J1885

== ENCOUNTER 2022-05-06 13:26 | Outpatient (CLI) | payer MEDICAID | END 2022-05-06 13:27 | disposition home or self-care (01) | LOC: BICMAMMO 13:26 | PROVIDERS: ATTEND Nurse Practitioner Women's Health | DX: N63.32 Unspecified lump in axillary tail of the left breast (principal); R92.2 Inconclusive mammogram | CPT/HCPCS: 77066; G0279 ==

== ENCOUNTER 2023-12-31 12:56 | Emergency (ER) | payer MEDICAID ==
[2023-12-31] MEDS ORDERED: Morphine 4 MG/ML VIAL ONE ×2 (13:49→15:48)
[2023-12-31] MEDS ORDERED: Ketorolac Tromethamine 30 MG (1 mL) VIAL ONE (13:49)
[2023-12-31] MEDS ORDERED: Ondansetron PF 4 MG/2 ML Vial ONE (13:49)
[2023-12-31 14:04] LABS: #Monocytes 0.4 thou/uL (0.11-0.59); #Neutrophils 3.8 thou/uL (1.40-6.50); %Basophils 0.6 % (0.0-1.0); %Eosinophils 0.4 % (0.0-10.0); %Lymphocytes 36.1 % (21.0-51.0); %Monocytes 6.3 % (0.0-10.0); %Neutrophils 56.5 % (42.0-75.0); Hematocrit 39.6 % (36.0-47.0); Hemoglobin 13.9 g/dL (12.0-16.0); Mean Corpuscular HGB CONC 35.1 g/dL (32.0-36.0); Mean Corpuscular Hemoglobin 31.7 pg (27.0-31.0); Mean Corpuscular Volume 90.2 fl (78.0-98.0); Mean Platelet Volume 10.2 fL (7.4-10.4); Platelet Count 247 10x3/uL (130-400); RBC Distribution Width 11.8 % (11.5-14.5); Red Blood Cell (RBC) Count 4.39 mill/uL (4.20-5.40); White Blood Cell (WBC) Count 6.7 10x3/uL (4.8-10.8)
[2023-12-31 14:17] LABS: Bacteria/HPF None Seen HPF (None Seen); Bilirubin Negative (Negative); Blood, Urine Trace (Negative); CAUTI Indications for Culture Dysuria,urgency,freq; Glucose, Urine (Dipstick) Normal (Negative); Ketone, Urine Negative (Negative); Leukocyte Negative Leu/uL (Negative); Nitrite Negative (Negative); Protein, Urine (Dipstick) Negative (Neg-Trace); Specific Gravity, Urine 1.022 (1.002-1.036); Squamous Epithelial 0-3 HPF (0-3); Urobilinogen Normal mg/dL (Less than 2); WBC/HPF 0-3 HPF (0-3); pH, Urine 6.5 (5.0-9.0)
[2023-12-31 14:17] LABS: BHCG - Serum Negative (NEGATIVE); Pregs Control Background? CLEAR/WHITE (CLR/WHITE); Pregs Control Bar Appear? YES (CONTROL BAR)
[2023-12-31 14:18] LABS: Clarity Hazy (Clear)
[2023-12-31 14:19] LABS: Urine Culture Reflex No No
[2023-12-31 14:20] LABS: ALT (SGPT) Less than 7 U/L (8-55); AST (SGOT) 18 U/L (5-34); Albumin 4.4 g/dL (3.5-5.0); Alkaline Phosphatase 61 U/L (40-110); Anion Gap 12 mmol/L (10-20); BUN (Urea Nitrogen) 16 mg/dL (7.0-18.7); Bilirubin, Total 0.4 mg/dL (0.2-1.2); Calc. Creatinine Clearance 0 mL/min (70-130); Calcium 9.1 mg/dL (7.8-10.44); Carbon Dioxide 24 mmol/L (22-29); Estimated GFR 85; Globulin 2.6 g/dL (2.4-3.5); Glucose 75 mg/dL (70-105); Potassium 3.7 mmol/L (3.5-5.1); Sodium 138 mmol/L (136-145)
[2023-12-31 14:25] LABS: Chloride 106 mmol/L (98-107)
== END 2023-12-31 17:35 | disposition home or self-care (01) ==
LOC: ERS 12:56
DX: R31.9 Hematuria, unspecified (principal); N83.291 Other ovarian cyst, right side
CPT/HCPCS: 74176; 76856; 80053; 81001; 84703; 85025; 96361; 96374; 96375; 96376; J1885; J2270; J2405